=== PATIENT | female | born 1970 | race Hispanic/Latino ===

== ENCOUNTER 2021-05-15 06:08 | Emergency (ER) | payer BC ==
[~2021-05-15] VITALS: Ht 162.6 cm; Wt 77.1 kg
[2021-05-15 06:11] VITALS: BP 158/87
[2021-05-15] MEDS ORDERED: PROCHLORPERAZINE EDISYLATE 10 MG/2 ML VIAL IV SCH (07:15)
[2021-05-15] MEDS ORDERED: DiphenhydrAMINE HCL 50 MG/ML VIAL IV ONE (07:15)
[2021-05-15] MEDS ORDERED: NACL 0.9% 1000ML 1,000 ML IV ONE (07:15)
[2021-05-15 07:58] VITALS: BP 149/90
[2021-05-15 08:12] LABS: BASOPHILS % (AUTO) 0.4 % (0.0-5.0); EOSINOPHILS % (AUTO) 0.2 % (0.0-8.0); HEMATOCRIT 45.6 % (36-48); LYMPHOCYTES % (AUTO) 15.6 % (21.0-51.0); MEAN CORPUSCULAR HEMOGLOBIN 28.4 pg (27.0-33.0); MEAN CORPUSCULAR HGB CONC 33.3 g/dL (32.0-36.0); MEAN CORPUSCULAR VOLUME 85.1 fL (79-99); MONOCYTES % (AUTO) 5.1 % (3.0-13.0); NEUTROPHILS % (AUTO) 78.1 % (40.0-77.0); PLATELET COUNT (AUTO) 222 K/uL (130-400); RED BLOOD CELL COUNT(AUTO) 5.36 MIL/uL (4.00-5.50); RED CELL DISTRIBUTION WIDTH 12.3 % (11.0-15.5); WHITE BLOOD COUNT (AUTO) 10.1 K/uL (4.8-10.8)
[2021-05-15] MEDS ORDERED: DiphenhydrAMINE HCL 50 MG/ML VIAL ONE (08:14)
[2021-05-15] MEDS ORDERED: PROCHLORPERAZINE EDISYLATE 10 MG/2 ML VIAL ONE (08:15)
[2021-05-15 08:27] LABS: ALBUMIN 3.4 g/dL (3.5-5.0); BILIRUBIN,TOTAL 0.4 mg/dL (0.2-1.0); CREATININE 0.6 mg/dL (0.5-1.5); POTASSIUM 3.9 mmol/L (3.5-5.1); TOTAL PROTEIN, SERUM 7.5 g/dL (6.0-8.3)
[2021-05-15] MEDS ORDERED: FAMO-136 PO (08:57)
[2021-05-15] MEDS ORDERED: PROC5TAB54 PO (08:57)
[2021-05-15 09:03] VITALS: BP 181/106
[2021-05-15 09:04] VITALS: BP_SYST 156; BP_SYST 170; BP_DIAS 96; BP_DIAS 98
[2021-05-15 11:07] VITALS: BP 154/86
[2021-05-15 12:38] VITALS: BP 145/77
== END 2021-05-15 12:51 | disposition home or self-care (01) ==
LOC: EDH 06:16
DX: K29.70 Gastritis, unspecified, without bleeding (principal); G43.909 Migraine, unspecified, not intractable, without status migrainosus; I10 Essential (primary) hypertension
CPT/HCPCS: 36415; 70450; 80053; 82948; 83690; 84484; 85025; 96374; 96375; 99285; J0780; J1200